=== PATIENT | male | born 1985 | race Caucasian/White ===

== ENCOUNTER 2017-08-15 15:21 | Emergency (ER) | payer BC, OTHER ==
--- NOTE | 2017-08-15 15:25 | PDOC ---
History of Present Illness <JameelKartik reis Zully - Last Filed: 08/15/17 18:22> - General History Source: Patient (Pt is a 32 year old male, with a significant past medical history of kidney stones, who presents to the emergency department complaining of right flank pain radiating into the right groin since this morning. The patient reports his symptoms are similar to when he has kidney stones in the past. He denies any dysuria, hematuria, frequency, or urgency. He denies any nausea or vomiting. He denies any fever or chills. ) Exam Limitations: No Limitations <Sagrario Martin - Last Filed: 08/15/17 18:25> - General Chief Complaint: Pain Stated Complaint: RT FLANK PAIN Past History <JameelsmileyKartik Andrea - Last Filed: 08/15/17 18:22> - Past Medical History Kidney Stones: Yes <Sagrario Martin - Last Filed: 08/15/17 18:25> - Past Medical History Allergies/Adverse Reactions: Allergies Allergy/AdvReac Type Severity Reaction Status Date / Time No Known Allergies Allergy Verified 08/15/17 15:23 Home Medications: Ambulatory Orders NK [No Known Home Medication] 08/15/17 Review of Systems - Review of Systems Able to Perform ROS?: Yes Constitutional: No: Chills, Fever Respiratory: No: Cough, Shortness of Breath Cardiac (ROS): No: Chest Pain ABD/GI: No: Abdominal Distended, Constipated, Diarrhea, Nausea, Vomiting : Yes: Symptoms Reported, See HPI, Flank Pain, Pain (Right groin pain). No: Dysuria, Frequency, Hematuria, Urgency Musculoskeletal: Yes: See HPI Neurological: No: Headache, Weakness, Dizziness All Other Systems: Reviewed and Negative <Sagrario Martin - Last Filed: 08/15/17 18:25> *Physical Exam - Vital Signs Last Vital Signs Temp Pulse Resp BP Pulse Ox 97.8 F 67 20 127/87 100 08/15/17 15:22 08/15/17 15:22 08/15/17 15:22 08/15/17 15:22 08/15/17 15:22 - Physical Exam General Appearance: Yes: Nourished, Appropriately Dressed. No: Apparent Distress HEENT: positive: EOMI, SARITA Neck: positive: Trachea midline, Supple. negative: Tender Respiratory/Chest: positive: Lungs Clear, Normal Breath Sounds. negative: Chest Tender, Respiratory Distress Cardiovascular: positive: Regular Rhythm, Regular Rate, S1, S2 Gastrointestinal/Abdominal: positive: Normal Bowel Sounds, Soft Male Genitalia: negative: hematuria Lymphatic: negative: Adenopathy Musculoskeletal: positive: CVA Tenderness, CVA Tenderness (R). negative: CVA Tenderness (L), Decreased Range of Motion Integumentary: positive: Normal Color, Dry, Warm Neurologic: positive: cage maker II-XII NML intact, Fully Oriented <Sagrario Martin - Last Filed: 08/15/17 18:25> ED Treatment Course - LABORATORY CBC & Chemistry Diagram: 08/15/17 16:19 08/15/17 16:19 <Kartik Nj - Last Filed: 08/15/17 18:22> - LABORATORY CBC & Chemistry Diagram: 08/15/17 16:19 08/15/17 16:19 - RADIOLOGY Radiograph Interpretation: 08/15/17 18:22 EXAM: CT Abdomen and Pelvis INTERPRETED BY: Dr. Wyatt REVIEWED BY: Dr. Nj IMPRESSION: 2 to 3 mm distal right ureteral calculus is noted with resultant mild hydronephrosis. Small bilateral nonobstructing renal calculi are seen. <Sagrario Martin - Last Filed: 08/15/17 18:25> Medical Decision Making - Medical Decision Making 08/15/17 18:22 Pt observed in the ER for several hours. Patient states he is feeling much better with hydration and after the Toradol. <Sagrario Martin - Last Filed: 08/15/17 18:25> *DC/Admit/Observation/Transfer <Kartik Nj - Last Filed: 08/15/17 18:22> - Attestations Scribe Attestion: 08/15/17 16:21 Documentation prepared by Sagrario Martin, acting as medical device assembler for Kartik Nj MD. <Sagrario Martin - Last Filed: 08/15/17 18:25> Diagnosis at time of Disposition: Kidney calculus - Discharge Dispostion Disposition: HOME - Patient Instructions Printed Discharge Instructions: Kidney Stones -- Adult Additional Instructions: Stay hydrated by drinking a lot of water. Follow up with Urology. Print Language: CAMEROONIAN
[2017-08-15 15:27] VITALS: BP 127/87; PULSE 67; TEMP 97.8; BMI 34.8
[2017-08-15] MEDS ORDERED: KETOROLAC TROMETHAMINE 30 MG/1 ML VIAL ONE (16:12)
[2017-08-15] MEDS ORDERED: KETOROLAC TROMETHAMINE 30 MG/1 ML VIAL IVPUSH ONE (16:20)
[2017-08-15] MEDS ORDERED: SODIUM CHLORIDE 1,000 ML IV STA (16:21)
[2017-08-15 16:28] LABS: URINE APPEARANCE Clear; URINE BILIRUBIN Negative (NEGATIVE); URINE GLUCOSE (UA) Negative (NEGATIVE); URINE KETONE Negative (NEGATIVE); URINE LEUK ESTERASE Negative (NEGATIVE); URINE NITRITE Negative (NEGATIVE); URINE PROTEIN Negative (NEGATIVE); URINE UROBILINOGEN 0.2 (0.2-1.0)
[2017-08-15 16:32] LABS: URINE BLOOD 3+ (NEGATIVE); URINE COLOR YELLOW
[2017-08-15 16:42] LABS: BASO % 0.4 % (0-2.0); EOS % 0.9 % (0-4.5); HEMATOCRIT 41.1 % (35.4-49); LYMPH % 30.4 % (8-40); MCH 28.7 pg (25.7-33.7); MEAN CELL VOLUME 84.5 fl (80-96); MEAN PLT VOLUME 8.7 fl (7.5-11.1); MONO % 6.8 % (3.8-10.2); NEUT % 61.5 % (42.8-82.8); PLATELET COUNT 200 K/MM3 (134-434); RBC 4.86 M/mm3 (4.00-5.60); RDW 12.3 % (11.9-15.9); WHITE BLOOD COUNT 7.2 K/mm3 (4.0-10.8)
[2017-08-15 16:47] LABS: ALBUMIN 4.2 g/dl (3.5-5.0); ALK PHOS 62 U/L (32-92); ANION GAP 6 (8-16); BILIRUBIN,TOTAL 0.6 mg/dl (0.2-1.0); BLOOD UREA NITROGEN 17 mg/dl (7-18); CALCIUM 8.9 mg/dl (8.4-10.2); CHLORIDE 104 mmol/L (98-107); CO2 21 mmol/L (22-28); CREATININE 0.9 mg/dl (0.6-1.3); GLUCOSE,RANDOM 94 mg/dl (74-106); POTASSIUM 3.8 mmol/L (3.5-5.1); SGOT/AST 21 U/L (10-42); SGPT/ALT 22 U/L (10-40); SODIUM 131 mmol/L (136-145); TOT PROT 7.5 g/dl (6.4-8.3)
[2017-08-15 17:55] LABS: URINE BACTERIA FEW /hpf (NEGATIVE); URINE RBC >100 /hpf (0-3)
== END 2017-08-15 18:48 | disposition home or self-care (01) ==
LOC: FER 15:21
PROC: 3E0333Z Introduction of Anti-inflammatory into Peripheral Vein, Percutaneous Approach (ICD-10-PCS; principal; 2017-08-15)
PROC: 3E0337Z Introduction of Electrolytic and Water Balance Substance into Peripheral Vein, Percutaneous Approach (ICD-10-PCS; 2017-08-15)
DX: N20.0 Calculus of kidney (principal)
CPT/HCPCS: 36415; 74176-TC; 80053; 81003; 81015; 85025; 99282-25

== ENCOUNTER 2017-08-16 03:43 | Emergency (ER) | payer BC, OTHER ==
--- NOTE | 2017-08-16 03:46 | PDOC ---
History of Present Illness - General Chief Complaint: Pain, Acute Stated Complaint: PAIN Time Seen by Provider: 08/16/17 03:45 - History of Present Illness Initial Comments: This 32-year-old man was seen earlier today in the ER with right-sided flank pain; renal stone protocol CT revealed 2-3 mm distal ureteral stone with mild hydronephrosis. Patient was given 30 mg Toradol IV with relief of his symptoms and he was discharged approximately 6 PM. He was comfortable throughout the evening; he was awakened with mild right flank pain at 3 AM and took OTC ibuprofen. Pain became progressively severe and he presented here Patient states the pain tonight is more severe than what he felt earlier in the day. Patient has a history of kidney stones. Past History - Past Medical History Allergies/Adverse Reactions: Allergies Allergy/AdvReac Type Severity Reaction Status Date / Time No Known Allergies Allergy Verified 08/15/17 15:23 Home Medications: Ambulatory Orders Oxycodone HCl/Acetaminophen [Percocet 5-325 mg Tablet] 1 tab PO Q6H PRN #12 tablet MDD 2 tabs 08/16/17 Tamsulosin HCl [Flomax] 0.4 mg PO DAILY #10 capsule 08/16/17 COPD: No Kidney Stones: Yes - Suicide/Smoking/Psychosocial Hx Smoking History: Never smoked Have you smoked in the past 12 months: No Hx Alcohol Use: No Drug/Substance Use Hx: No Substance Use Type: None Review of Systems - Review of Systems Able to Perform ROS?: Yes Comments:: 12 point review of systems is negative except for what is noted in the history of present illness *Physical Exam - Physical Exam Comments: GENERAL: Adult male, in marked distress secondary to right flank/lower abdomen pain ABDOMEN:.normal bowel sounds mild tenderness right lower quadrant/right flank area without guarding No masses No distention. EXTREMITIES: Normal range of motion, no edema. No clubbing or cyanosis. No erythema, or tenderness. NEUROLOGICAL: Cranial nerves II through XII grossly intact. Normal speech. No focal neurological deficits. MUSCULOSKELETAL: Back non-tender to palpation, no CVA tenderness SKIN: Warm, Dry, normal turgor, no rashes or lesions noted. *DC/Admit/Observation/Transfer Diagnosis at time of Disposition: Renal colic on right side - Discharge Dispostion Disposition: HOME Condition at time of disposition: Stable - Prescriptions Prescriptions: Oxycodone HCl/Acetaminophen [Percocet 5-325 mg Tablet] 1 tab PO Q6H PRN #12 tablet MDD 2 tabs PRN Reason: Severe Pain Tamsulosin HCl [Flomax] 0.4 mg PO DAILY #10 capsule - Referrals Referrals: Christopher Cox v [Primary Care Provider] - - Patient Instructions Printed Discharge Instructions: DI for Kidney Stones Additional Instructions: drink plenty of water flomax 0.4mg daily ibuprofen/tylenol as needed for mild pain Percocet 5/325 up to 3 times a day for severe pain return to ER if you have persistent severe pain or vomiting followup with your urologist within 5-7 days - Post Discharge Activity
[2017-08-16 03:53] VITALS: BP 132/99; PULSE 62; TEMP 97.7; BMI 38.0
[2017-08-16] MEDS ORDERED: SODIUM CHLORIDE 1,000 ML IV STA (03:56)
[2017-08-16] MEDS ORDERED: KETOROLAC TROMETHAMINE 30 MG/1 ML VIAL IVPUSH ONE (03:56)
[2017-08-16] MEDS ORDERED: KETOROLAC TROMETHAMINE 30 MG/1 ML VIAL ONE (04:01)
[2017-08-16] MEDS ORDERED: HYDROmorphone HCL CARPU-JECT 1 MG/1 ML DISP.SYRIN IVPUSH ONE ×2 (04:15→04:43)
[2017-08-16] MEDS ORDERED: HYDROmorphone HCL CARPU-JECT 1 MG/1 ML DISP.SYRIN ONE ×2 (04:19→04:46)
[2017-08-16] MEDS ORDERED: HYDROmorphone HCL CARPU-JECT 2 MG/1 ML DISP.SYRIN IVPUSH ONE (05:11)
[2017-08-16] MEDS ORDERED: HYDROmorphone HCL CARPU-JECT 2 MG/1 ML DISP.SYRIN ONE (05:18)
[2017-08-16] MEDS ORDERED: ONDANSETRON 4 MG/2 ML VIAL IVPUSH ONE (06:12)
[2017-08-16] MEDS ORDERED: TAMSULOSIN HCL 0.4 MG CAP.ER.24H (FP) PO ONE (06:13)
[2017-08-16] MEDS ORDERED: TAMSULOSIN HCL 0.4 MG CAP.ER.24H (FP) ONE (06:13)
[2017-08-16] MEDS ORDERED: ONDANSETRON 4 MG/2 ML VIAL ONE (06:13)
== END 2017-08-16 06:27 | disposition home or self-care (01) ==
LOC: FER 03:43
PROC: 3E033NZ Introduction of Analgesics, Hypnotics, Sedatives into Peripheral Vein, Percutaneous Approach (ICD-10-PCS; principal; 2017-08-16)
PROC: 3E0333Z Introduction of Anti-inflammatory into Peripheral Vein, Percutaneous Approach (ICD-10-PCS; 2017-08-16)
PROC: 3E033GC Introduction of Other Therapeutic Substance into Peripheral Vein, Percutaneous Approach (ICD-10-PCS; 2017-08-16)
PROC: 3E0337Z Introduction of Electrolytic and Water Balance Substance into Peripheral Vein, Percutaneous Approach (ICD-10-PCS; 2017-08-16)
DX: N23 Unspecified renal colic (principal)
CPT/HCPCS: 99281-25